=== PATIENT | female | born 1995 | race Caucasian/White ===

== ENCOUNTER 2017-03-09 21:14 | Emergency (ER) | payer OTHER ==
[~2017-03-09] VITALS: Ht 177.8 cm; Wt 75.0 kg
[2017-03-09 22:20] LABS: WHITE BLOOD COUNT 6.5 x10^3/uL (3.4-10)
[2017-03-10 00:01] VITALS: BP 122/85
== END 2017-03-10 00:04 | disposition home or self-care (01) ==
LOC: ED 22:46
DX: F10.129 Alcohol abuse with intoxication, unspecified (principal)
CPT/HCPCS: 36415; 84703; 85025; 93005; 99285